=== PATIENT | female | born 1955 | race Asian ===

== ENCOUNTER 2018-03-16 12:36 | Day surgery (SDC) | payer OTHER ==
[2018-03-16] MEDS ORDERED: MIDAZOLAM 1 MG/ML 2 ML INJ (14:00)
[2018-03-16] MEDS ORDERED: PROPOFOL 20 ML (14:00)
== END 2018-03-16 16:03 | disposition home or self-care (01) ==
LOC: GIL 12:36
DX: Z12.11 Encounter for screening for malignant neoplasm of colon (principal)
CPT/HCPCS: 45378